=== PATIENT | female | born 1960 | race Caucasian/White ===

== ENCOUNTER → 2017-12-08 | Emergency (ER) | payer OTHER ==
[2017-12-08 19:23] VITALS: BP 145/82; PULSE 76; TEMP 98.5; BMI 44.1
== END | disposition left against medical advice (07) ==
LOC: JER 18:37
DX: Z53.21 Procedure and treatment not carried out due to patient leaving prior to being seen by health care provider (principal)
CPT/HCPCS: 99281-25

== ENCOUNTER 2019-03-01 15:53 | Emergency (ER) | payer OTHER ==
--- NOTE | 2019-03-01 16:35 | PDOC ---
History of Present Illness - General Chief Complaint: Allergic Reaction Stated Complaint: ALLERGIC REACTION Time Seen by Provider: 03/01/19 16:34 - History of Present Illness Initial Comments: 03/01/19 16:34 Ms. Lowe is a 58 yo female w/ pmh of HTN, JOSEPH, and unspecified "chest pain" who presents for evaluation of 2 day history of chest pain and shortness of breath. Patient reports she has been "cleansing" with a tea made of cilantro leaves for the past 2 days. Patient reports she had difficulty breathing last night as her tongue was bigger. Presents today as PCP recommended presentation yesterday. The patient denies headache and dizziness. Denies fever, chills, nausea, vomit, diarrhea and constipation. Denies dysuria, frequency, urgency and hematuria. Past History - Past Medical History Allergies/Adverse Reactions: Allergies Allergy/AdvReac Type Severity Reaction Status Date / Time No Known Drug Allergies Allergy Verified 03/01/19 16:53 Home Medications: Ambulatory Orders Aspirin Coated [Ecotrin -] 81 mg PO DAILY 09/28/17 Atorvastatin Ca [Lipitor] 10 mg PO HS 09/28/17 Gabapentin 300 mg PO TID 09/28/17 Meloxicam 15 mg PO DAILY 09/28/17 Methadone [Dolophine -] 10 mg PO DAILY 09/28/17 Metoprolol Succinate 50 mg PO DAILY 09/28/17 Naproxen 500 mg PO PRN PRN 09/28/17 Nebivolol HCl [Bystolic] 2.5 mg PO DAILY 09/28/17 Omeprazole 20 mg PO DAILY 09/28/17 Quetiapine Fumarate [Seroquel -] 50 mg PO DAILY 09/28/17 Ranolazine [Ranexa] 500 mg PO Q12H 09/28/17 Anemia: No Asthma: Yes Cancer: No Cardiac Disorders: No CVA: No COPD: Yes CHF: No Dementia: No Diabetes: Yes (BORDERLINE) GI Disorders: Yes (GERD) Disorders: No HTN: Yes Hypercholesterolemia: Yes Liver Disease: No Seizures: No Thyroid Disease: No - Surgical History Orthopedic Surgery: Yes (LEFT KNEE REPLACEMENT) - Suicide/Smoking/Psychosocial Hx Smoking History: Current every day smoker Have you smoked in the past 12 months: Yes Number of Cigarettes Smoked Daily: 4 'Breaking Loose' booklet given: 09/30/17 Hx Alcohol Use: No Drug/Substance Use Hx: No Substance Use Type: None Hx Substance Use Treatment: No Review of Systems - Review of Systems Comments:: 03/01/19 16:35 GENERAL/CONSTITUTIONAL: No fever or chills. No weakness. HEAD, EYES, EARS, NOSE AND THROAT: No change in vision. No ear pain or discharge. No sore throat. CARDIOVASCULAR: +Chest pain / SOB as described. RESPIRATORY: No cough, wheezing, or hemoptysis. GASTROINTESTINAL: No nausea, vomiting, diarrhea or constipation. GENITOURINARY: No dysuria, frequency, or change in urination. MUSCULOSKELETAL: No joint or muscle swelling or pain. No neck or back pain. SKIN: No rash NEUROLOGIC: No headache, vertigo, loss of consciousness, or change in strength/ sensation. ENDOCRINE: No increased thirst. No abnormal weight change HEMATOLOGIC/LYMPHATIC: No anemia, easy bleeding, or history of blood clots. ALLERGIC/IMMUNOLOGIC: No hives or skin allergy. *Physical Exam - Physical Exam Comments: 03/01/19 16:35 GENERAL: Awake, alert, and fully oriented, in no acute distress HEAD: No signs of trauma, normocephalic, atraumatic EYES: PERRLA, EOMI, sclera anicteric, conjunctiva clear ENT: Auricles normal inspection, hearing grossly normal, nares patent, oropharynx clear without exudates. Moist mucosa NECK: Normal ROM, supple, no lymphadenopathy, JVD, or masses LUNGS: No distress, speaks full sentences, clear to auscultation bilaterally HEART: Regular rate and rhythm, normal S1 and S2, no murmurs, rubs or gallops, peripheral pulses normal and equal bilaterally. ABDOMEN: Soft, nontender, normoactive bowel sounds. No guarding, no rebound. No masses EXTREMITIES: Normal inspection, Normal range of motion, no edema. No clubbing or cyanosis. NEUROLOGICAL: Cranial nerves II through XII grossly intact. Normal speech, normal gait, no focal sensorimotor deficits SKIN: Warm, Dry, normal turgor, no rashes or lesions noted. ED Treatment Course - LABORATORY CBC & Chemistry Diagram: 03/01/19 16:45 03/01/19 16:45 Medical Decision Making - Medical Decision Making 03/01/19 18:36 Ms. Lowe is a 58 yo female w/ pmh as described who presents for evaluation of symptoms of allergic reaction vs. acs vs. infectious problem. Patient evaluated with cardiac labs and given benadryl w/ generalized relief from symptoms. Patient counseled to cease cilantro tea drinking. Patient verbalized understanding and would like to go home. No concern for acute process at this time. Strict return precautions discussed. Patient will be discharged for further outpatient follow-up as needed. *DC/Admit/Observation/Transfer Diagnosis at time of Disposition: Allergic reaction Qualifiers: Encounter type: initial encounter Qualified Code(s): T78.40XA - Allergy, unspecified, initial encounter - Discharge Dispostion Disposition: HOME - Referrals Referrals: Hemant Brooke MD [Primary Care Provider] - - Patient Instructions Printed Discharge Instructions: DI for Food Allergy Additional Instructions: You were evaluated today in the ER for your symptoms. We performed laboratory and cardiac evaluation with no concerning findings and your symptoms improved with benadryl. We do not believe anything emergent is occurring at this time. Stop taking cilantro tea mixture as discussed. Follow-up with primary care provider later this week for further evaluation. Return to ER if any fever, chills, shortness of breath, or other concerning symptoms. - Post Discharge Activity
[2019-03-01 16:51] VITALS: BP 126/88; PULSE 84; TEMP 98.7; BMI 34.9
[2019-03-01 18:28] LABS: ALBUMIN 3.4 g/dl (3.4-5.0); ALK PHOS 60 U/L (45-117); ANION GAP 3 MMOL/L (8-16); BILIRUBIN,TOTAL 0.3 mg/dL (0.2-1); BLOOD UREA NITROGEN 11.3 mg/dL (7-18); CALCIUM 8.5 mg/dL (8.5-10.1); CHLORIDE 106 mmol/L (98-107); CO2 34 mmol/L (21-32); CREATININE 0.5 mg/dL (0.55-1.3); GLUCOSE,RANDOM 97 mg/dL (74-106); POTASSIUM 4.5 mmol/L (3.5-5.1); SGOT/AST 18 U/L (15-37); SGPT/ALT 18 U/L (13-61); SODIUM 143 mmol/L (136-145); TOT PROT 7.3 g/dl (6.4-8.2)
[2019-03-01 18:30] LABS: BASO % 0.6 % (0-2.0); EOS % 2.7 % (0-4.5); HEMATOCRIT 37.1 % (32.4-45.2); HEMOGLOBIN 12.2 GM/dL (10.7-15.3); LYMPH % 33.2 % (8-40); MCH 30.3 pg (25.7-33.7); MCHC 32.7 g/dl (32.0-36.0); MEAN CELL VOLUME 92.7 fl (80-96); MONO % 8.4 % (3.8-10.2); NEUT % 55.1 % (42.8-82.8); RBC 4.01 M/mm3 (3.60-5.2); RDW 13.6 % (11.6-15.6)
--- NOTE | 2019-03-01 19:52 | PDOC ---
Documentation entered by Tri Amado SCRIBE, acting as scribe for Regla Mansfield MD. Regla Mansfield MD: This documentation has been prepared by the scribe, Tri Amado SCRIBE, under my direction and personally reviewed by me in its entirety. I confirm that the documentation accurately reflects all work, treatment, procedures, and medical decision making performed by me. Attending Attestation - Resident Resident Name: [email or web address] - ED Attending Attestation I have performed the following: I have examined & evaluated the patient, The case was reviewed & discussed with the resident, I agree w/resident's findings & plan, Exceptions are as noted - HPI HPI: 03/01/19 17:38 The patient is a 58 year old female with a significant past medical history of asthma, COPD, GERD, diabetes, hypertension and hypercholesterolemia who presents to the emergency department with chest pain and shortness of breath for 2 days. She describes her chest pain as 5/10 severity,pressure-like and intermittent. She denies any radiation of her chest pain to her arms. She states that she has been using cilantro as a cleanse to lose weight and she noticed that she had some difficulty breathing last night with some associated tongue swelling today. She denies any fever, chills, nausea, vomiting, diarrhea , constipation or urinary symptoms. She denies any headache or dizziness. The patient presents for further evaluation of her symptoms. - Physicial Exam PE: 03/01/19 17:38 GENERAL: Well developed, well nourished. Awake and alert. No acute distress. HEENT: Normocephalic, atraumatic. PERRLA, EOMI. No conjunctival pallor. Sclera are non- icteric. Moist mucous membranes. Oropharynx is clear. NECK: Supple. Full ROM. No JVD. Carotid pulses 2+ and symmetric, without bruits. No thyromegaly. No lymphadenopathy. CARDIOVASCULAR: Regular rate and rhythm. No murmurs, rubs, or gallops. Distal pulses are 2+ and symmetric. PULMONARY: No evidence of respiratory distress. Lungs clear to auscultation bilaterally. No wheezing, rales or rhonchi. ABDOMINAL: Soft. Non-tender. Non-distended. No rebound or guarding. No organomegaly. Normoactive bowel sounds. MUSCULOSKELETAL Normal range of motion at all joints. No bony deformities or tenderness. No CVA tenderness. EXTREMITIES: (+) old liner scar, well healed, over left knee. No cyanosis. No clubbing. No edema. No calf tenderness. SKIN: Warm and dry. Normal capillary refill. No rashes. No jaundice. NEUROLOGICAL: Alert, awake, appropriate. Cranial nerves 2-12 intact. No deficits to light touch and temperature in face, upper extremities and lower extremities. No motor deficits in the in face, upper extremities and lower extremities. Normoreflexic in the upper and lower extremities. Normal speech. Toes are down- going bilaterally. Gait is normal without ataxia. PSYCHIATRIC: Cooperative. Good eye contact. Appropriate mood and affect. - Medical Decision Making 03/01/19 17:45 58-YEAR-OLD FEMALE PRESENTS BECAUSE OF CHEST PRESSURE FOR THE LAST DAY. sHE DENIES ANY NAUSEA, VOMITING, SHORTNESS OF BREATH EKG is normal sinus rhythm at 70 bpm, with no signs of ischemia. patient has a normal cardiac exam with no rubs, murmurs or gallops appreciated. She is stable vital signs. Differential diagnosis includes angina, atypical chest pain, musculoskeletal strain, GERD 03/01/19 19:50 labs reviewed,ekg no evidence of acute coronary syndrome, d/c home to follow up with PCP imp atypical chest pain
[2019-03-01 20:17] LABS: MEAN PLT VOLUME 9.4 fl (7.5-11.1); PLATELET COUNT 200 K/MM3 (134-434); PLATELET ESTIMATE ADEQUATE
--- NOTE | 2019-03-02 08:33 | EKG ---
Test Reason : Blood Pressure : / mmHG Vent. Rate : 078 BPM Atrial Rate : 078 BPM P-R Int : 176 ms QRS Dur : 080 ms QT Int : 398 ms P-R-T Axes : 050 037 042 degrees QTc Int : 453 ms POOR DATA QUALITY, INTERPRETATION MAY BE ADVERSELY AFFECTED NORMAL SINUS RHYTHM NORMAL ECG NO PREVIOUS ECGS AVAILABLE Confirmed by AI SOARES MD ([id number]) on 03/02/2019 8:33:17 AM Referred By: Confirmed By:AI SOARES MD
== END 2019-03-01 20:05 | disposition home or self-care (01) ==
LOC: JER 15:53
PROC: 3E033GC Introduction of Other Therapeutic Substance into Peripheral Vein, Percutaneous Approach (ICD-10-PCS; principal; 2019-03-01)
DX: T78.40XA Allergy, unspecified, initial encounter (principal); F17.210 Nicotine dependence, cigarettes, uncomplicated; K21.9 Gastro-esophageal reflux disease without esophagitis; I10 Essential (primary) hypertension; E78.00 Pure hypercholesterolemia, unspecified; R73.03 Prediabetes; J44.9 Chronic obstructive pulmonary disease, unspecified
CPT/HCPCS: 36415; 71045-TC-FY; 80053; 82550; 84484; 85025; 93005; 93010; 96374; 99281-25

== ENCOUNTER 2023-09-08 16:28 | Emergency (ER) | payer OTHER ==
[2023-09-08 17:03] VITALS: BP 134/88; PULSE 95; RESP 18; TEMP 98.3; BMI 41.1
[2023-09-08] MEDS ORDERED: ALBUTEROL SO4 2.5/IPRATROPIUM 0.5 INH SOL 3 ML VIAL.NEB. NEB ONE (17:16)
[2023-09-08] MEDS ORDERED: SODIUM CHLORIDE 0.9% 500 ML INFUS.BAG IV ONE (17:21)
[2023-09-08] MEDS: ALBUTEROL SO4 2.5/IPRATROPIUM 0.5 INH SOL 3 ML VIAL.NEB. NEB SCH ×4 (17:35→18:15)
[2023-09-08 18:03] LABS: EPI CELLS 23 /uL (0-25.1); HYALINE CASTS 1 /uL (0-3.1); PH,URINE 5.5 (5.0-8.0); URINE APPEARANCE TURBID; URINE BACTERIA >9,000 /uL (0-1359); URINE BILIRUBIN NEGATIVE (NEGATIVE); URINE COLOR DK YELLOW; URINE GLUCOSE (UA) NEGATIVE (NEGATIVE); URINE KETONE NEGATIVE (NEGATIVE); URINE LEUK ESTERASE 3+ (NEGATIVE); URINE NITRITE POSITIVE (NEGATIVE); URINE PROTEIN 2+ (NEGATIVE); URINE RBC 804 /uL (0-23.9); URINE UROBILINOGEN 0.2 mg/dL (0.2-1.0); URINE WBC 5132 /uL (0-25.8)
[2023-09-08] MEDS ORDERED: CEFTRIAXONE 1,000 MG in DEXTROSE 5%-WATER - 50 ML IVPB ONE (18:08)
[2023-09-08] MEDS ORDERED: CEFTRIAXONE 1 GM/50 ML BAG ONE (18:18)
[2023-09-08 18:27] LABS: BASO % 0.4 % (0-2.0); EOS % 1.2 % (0-4.5); HEMATOCRIT 46.3 % (32.4-45.2); HEMOGLOBIN 14.9 GM/dL (10.7-15.3); LYMPH % 26.2 % (8-40); MCH 30.9 pg (25.7-33.7); MCHC 32.2 g/dl (32.0-36.0); MEAN CELL VOLUME 95.9 fl (80-96); MEAN PLT VOLUME 8.9 fl (7.5-11.1); MONO % 8.2 % (3.8-10.2); PLATELET COUNT 203 10^3/uL (134-434); RBC 4.82 M/mm3 (3.60-5.2)
[2023-09-08 18:31] LABS: INR 1.22 (0.83-1.09); PROTHROMBIN TIME (PATIENT) 14.1 SEC (9.7-13.0)
[2023-09-08 18:37] LABS: POTASSIUM 5.8 mmol/L (3.5-5.1)
[2023-09-08 18:39] LABS: CALCIUM 8.8 mg/dL (8.5-10.1)
[2023-09-08 18:40] LABS: ALBUMIN 3.2 g/dl (3.4-5.0); BLOOD UREA NITROGEN 13.1 mg/dL (7-18); MAGNESIUM 1.9 mg/dL (1.8-2.4)
[2023-09-08 18:43] LABS: CREATININE 0.6 mg/dL (0.55-1.3)
[2023-09-08 18:45] LABS: BILIRUBIN,TOTAL 0.3 mg/dL (0.2-1); TOT PROT 7.3 g/dl (6.4-8.2)
[2023-09-08] MEDS ORDERED: methylPREDNISolone NA SUCC 125 MG/2 ML VIAL IVPUSH ONE (19:17)
[2023-09-08] MEDS ORDERED: methylPREDNISolone NA SUCC 125 MG/2 ML VIAL ONE (20:21)
[2023-09-08 20:31] LABS: CALCIUM 8.4 mg/dL (8.5-10.1); POTASSIUM 4.6 mmol/L (3.5-5.1)
[2023-09-08 20:33] LABS: BLOOD UREA NITROGEN 12.2 mg/dL (7-18)
[2023-09-08 20:35] LABS: CREATININE 0.5 mg/dL (0.55-1.3)
== END 2023-09-08 21:10 | disposition home or self-care (01) ==
LOC: JER 16:28
PROC: 3E03329 Introduction of Other Anti-infective into Peripheral Vein, Percutaneous Approach (ICD-10-PCS; principal; 2023-09-08)
PROC: 3E033GC Introduction of Other Therapeutic Substance into Peripheral Vein, Percutaneous Approach (ICD-10-PCS; 2023-09-08)
PROC: 3E0F7GC Introduction of Other Therapeutic Substance into Respiratory Tract, Via Natural or Artificial Opening (ICD-10-PCS; 2023-09-08)
DX: U07.1 COVID-19 (principal); N39.0 Urinary tract infection, site not specified; R05.1 Acute cough; R30.9 Painful micturition, unspecified; R68.83 Chills (without fever); R09.81 Nasal congestion; R07.89 Other chest pain; R30.0 Dysuria
CPT/HCPCS: 0241U-QW; 36415; 71045-TC-FY; 80048; 80053; 81003; 83735; 84484; 85025; 85610; 87086; 87186; 93005; 93010; 99285-25